=== PATIENT | female | born 1995 ===

== ENCOUNTER 2017-02-14 12:31 | Emergency (ER) | payer SELFPAY ==
--- NOTE | 2017-02-14 12:37 | UC ---
Throat Pain/Nasal Emile HPI - HPI Summary HPI Summary: 21 y/o female presents to the urgent care c/o sore throat w/ difficulty swallowing for the past 2 days. She had mild fever and RICHTER at home yesterday and has not taking anything to alleviate symptoms. PT denies cough, SOB, nasal congestion, chest pain, N/V/D and no sick contacts. - History of Current Complaint Stated Complaint: SORE THROAT,SWOLLEN GLANDS, FEVER Time Seen by Provider: 02/14/17 12:35 Hx Obtained From: Patient Hx Last Menstrual Period: 02/26/16 ?: No Onset/Duration: Gradual Onset, Lasting Days, Still Present Severity: Mild Pain Intensity: 2 Pain Scale Used: 0-10 Numeric Cough: None Associated Signs & Symptoms: Positive: Dysphagia, Fever. Negative: Hoarseness, Sinus Discomfort, Vomiting, Rash - Epiglottits Risk Factors Epiglottis Risk Factors: Negative - Allergies/Home Medications Allergies/Adverse Reactions: Allergies Allergy/AdvReac Type Severity Reaction Status Date / Time No Known Allergies Allergy Verified 02/14/17 12:36 Home Medications: Home Medications [id number] [Night Time Multi-Symptom] 1 cap PO BEDTIME PRN 02/14/17 [History Confirmed 02/14/17] PMH/Surg Hx/FS Hx/Imm Hx Previously Healthy: Yes Other History Of: Negative For: HIV, Hepatitis B, Hepatitis C, Anticoagulant Therapy - Surgical History Surgical History: None - Family History Known Family History: Positive: Hypertension Negative: Cardiac Disease, Diabetes Family History: Hypercholesterolemia - Social History Occupation: Employed Full-time Lives: With Family Alcohol Use: None Substance Use Type: None Smoking Status (MU): Never Smoked Tobacco Review of Systems Constitutional: Fever - mild yesterday Skin: Negative Eyes: Negative ENT: Sore Throat Respiratory: Negative Cardiovascular: Negative Gastrointestinal: Negative Genitourinary: Negative Motor: Negative Neurovascular: Negative Musculoskeletal: Negative Neurological: Negative Psychological: Negative All Other Systems Reviewed And Are Negative: Yes Physical Exam Triage Information Reviewed: Yes Appearance: Well-Appearing, No Pain Distress, Well-Nourished, Obese Vital Signs Reviewed: Yes Eye Exam: Normal Eyes: Positive: Conjunctiva Clear - PERRLA, EOMI, Fundi grossly intact ENT: Positive: Normal ENT inspection, Hearing grossly normal, Pharyngeal erythema - no exudate, TMs normal, Tonsillar swelling, Other: - uvula in the midline,. Negative: Tonsillar exudate Dental Exam: Normal Neck exam: Normal Neck: Positive: Supple, Enlarged Nodes @ - anterior cervical lymphnodes terder and swollen Respiratory Exam: Normal Respiratory: Positive: Chest non-tender, Lungs clear, Normal breath sounds Cardiovascular Exam: Normal Cardiovascular: Positive: RRR, No Murmur, Pulses Normal Abdominal Exam: Normal Abdomen Description: Positive: Nontender, No Organomegaly, Soft. Negative: CVA Tenderness (R), CVA Tenderness (L) Bowel Sounds: Positive: Present Musculoskeletal Exam: Normal Neurological Exam: Normal Psychological Exam: Normal Skin Exam: Normal Throat Pain/Nasal Course/Dx - Course Course Of Treatment: 21 y/o female presents to the urgent care c/o sore throat w / difficulty swallowing for the past 2 days. She had mild fever and RICHTER at home yesterday and has not taking anything to alleviate symptoms. PT denies cough, SOB, nasal congestion, chest pain, N/V/D and no sick contacts. Hx obtained. PE abnormal findings:ENT: Positive: Normal ENT inspection, Hearing grossly normal, Pharyngeal erythema - no exudate, TMs normal, Tonsillar swelling. Negative: Tonsillar exudate. Rapid strep ordered. Result:negative. Most likely Viral pharyngitis. Pt Rx Ibuprofen 600mg PO to alleviate symptoms. Advised to f/u with PCP or return to urgent care if symptoms worsen. Pt understood and agreed - Differential Dx/Diagnosis Differential Diagnosis/HQI/PQRI: Laryngitis, Mononucleosis, Otitis Media, Pharyngitis, Sinusitis Provider Diagnoses: Viral pharyngitis Discharge - Discharge Plan Condition: Stable Disposition: HOME Patient Education Materials: Pharyngitis (ED) Referrals: Iman Nolasco PA [Primary Care Provider] - If Needed Additional Instructions: Please take medications as instructed . Increase fluid intake, rest and avoid strenuous exercise. If you do not improve or if symptoms worsen please follow up with your PCP or return to the urgent care for further evaluation and treatment.
[2017-02-14 12:43] VITALS: BP 119/76
== END 2017-02-14 13:29 | disposition home or self-care (01) ==
LOC: UCCORT 12:31
DX: J02.8 Acute pharyngitis due to other specified organisms (principal)
CPT/HCPCS: 87651; 99212; G0463